=== PATIENT | male | born 1955 | race Caucasian/White ===

== ENCOUNTER 2017-04-16 14:48 | Emergency (ER) | payer OTHER ==
[2017-02-28 15:59] VITALS: Ht 170.2 cm; Wt 105.3 kg
[~2017-04-16] VITALS: Ht 170.2 cm; Wt 105.3 kg
[~2017-04-16 14:48] MED LIST: ACAM333T3 PO; ALBU8.5H IH; ALL300 PO; ALLO-119 PO; CEP500 PO; CYAN20004 PO; DIAZ-305 PO; DISU500T3 PO; FOLI-68 PO; FOLTX PO; LEVO-3 PO; LEVO100T95 PO; LID5T TP; LOR5/325 PO; MAG-65 PO; MELA5TAB6 PO; MULT-859 PO; ONDA4TAB97 SL; PANT40TA65 PO; PEDI1TAB PO; POTA-28 PO; POTA10CA40 PO; RIFA550T PO; SPIR100T30 PO; SUCR1TAB51 PO; TAMS0.4C70 PO; THIA100T2 PO; THIA100T62 PO; TOBROD OD; iron PO
[2017-04-16 16:14] LABS: PLATELET COUNT, AUTOMATED 77 K/uL (150-450)
[2017-04-16 16:49] VITALS: BP 101/59
--- NOTE | 2017-04-16 17:17 | ER Report ---
History and Physical Time Seen By MD: 15:15 Hx. of Stated Complaint: SENT FOLLOWING A CT SCAN SHOWING PANCREATITIS. HPI/ROS Recently admitted for acute pancreatitis. Had abdominal pain this past week, and sent for outpt. CT scan by Alejandra Anderson. Alejandra sent pt. to the ED for abnormal scan which shows a possible pancreatic pseudocyst. Patient states he feels very well. STopped drinking alcohol after last admission. No fever/ chills. Able to take PO. No complaints Allergies: Coded Allergies: No Known Drug Allergies (Verified , 04/16/17) Home Meds Active Scripts Potassium Chloride (POTASSIUM CHLORIDE) 10 Meq Tablet.er, 10 MEQ PO QDAY, #14 TAB 1 Refill Prov:LIBORIO JAMA MD 03/03/17 Albuterol Sulfate 90 Mcg/Act (PROAIR HFA 90 MCG/ACT) 8.5 Gm Hfa.aer.ad, 2 PUFF IH Q4-6H Y for SHORTNESS OF BREATH, #0 INHALER Prov:SHASHI WATSON MD 12/16/15 Reported Medications Cyanocobalamin (Vitamin B-12) (Vitamin B-12) 2,000 Mcg Tablet, 1 MCG PO DAILY 02/27/17 Thiamine Hcl (THIAMINE HCL) 100 Mg Tablet, 100 MG PO QDAY 01/29/17 Folic Acid (FOLIC ACID) 1 Mg Tablet, 1 MG PO QDAY, TAB 01/29/17 Tamsulosin Hcl (TAMSULOSIN HCL) 0.4 Mg Cap.er.24h, 0.4 MG PO QDAY, CAP 01/27/17 Rifaximin (XIFAXAN) 550 Mg Tablet, 550 MG PO BID 01/26/17 Levothyroxine Sodium (LEVOTHYROXINE SODIUM) 100 Mcg Tablet, 200 MCG PO QDAY, TAB 01/26/17 [iron] No Conflict Check, 325 MG PO QDAY 01/26/17 Pediatric Multivit Comb No.76 (Flintstones Complete) 1 Each Tab.chew, 1 TAB PO QDAY 01/26/17 Spironolactone (ALDACTONE) 100 Mg Tablet, 100 MG PO QDAY 01/26/17 Allopurinol (Zyloprim) 300 Mg Tab, 300 MG PO QDAY, 0 Refills 03/09/10 Past Medical/Surgical History Pancreatitis, HTN, Alcohol abuse Reviewed Nurses Notes: Yes Old Medical Records Reviewed: Yes Hx Smoking: Yes Smoking Status: Former Smoker Exposure to Second Hand Smoke?: No Hx Substance Use Disorder: No Hx Alcohol Use: Yes Constitutional Vital Sign - Last 24 Hours 04/16/17 04/16/17 04/16/17 04/16/17 15:04 15:04 16:30 16:49 Temp 98.7 Pulse 90 88 Resp 18 B/P (MAP) 104/78 (87) 104/78 101/59 (73) Pulse Ox 92 93 O2 Delivery Room Air Medical Decision Making Data Points Result Diagram: 04/16/17 1558 04/16/17 1558 Laboratory Hematology Test 04/16/17 15:58 Red Blood Count 3.94 M/uL (4.00-5.60) Mean Corpuscular Volume 102.0 fL (80.0-96.0) Mean Corpuscular Hemoglobin 36.3 pg (26.0-33.0) Mean Corpuscular Hemoglobin Concent 35.6 g/dL (32.0-36.0) Red Cell Distribution Width 13.0 % (11.5-14.5) Mean Platelet Volume 9.9 fL (7.2-11.1) Neutrophils (%) (Auto) 76.1 % (39.4-72.5) Lymphocytes (%) (Auto) 12.4 % (17.6-49.6) Monocytes (%) (Auto) 9.7 % (4.1-12.4) Eosinophils (%) (Auto) 0.9 % (0.4-6.7) Basophils (%) (Auto) 0.9 % (0.3-1.4) Nucleated RBC Relative Count (auto) 0.0 /100WBC Neutrophils # (Auto) 7.6 K/uL (2.0-7.4) Lymphocytes # (Auto) 1.2 K/uL (1.3-3.6) Monocytes # (Auto) 1.0 K/uL (0.3-1.0) Eosinophils # (Auto) 0.1 K/uL (0.0-0.5) Basophils # (Auto) 0.1 K/uL (0.0-0.1) Nucleated RBC Absolute Count (auto) 0.00 K/uL Sodium Level 135 mmol/L (137-145) Potassium Level 4.7 mmol/L (3.5-5.0) Chloride Level 98 mmol/L (98-107) Carbon Dioxide Level 25 mmol/L (22-30) Blood Urea Nitrogen 14 mg/dl (9-21) Creatinine 1.00 mg/dl (0.66-1.25) Glomerular Filtration Rate Calc > 60.0 Random Glucose 94 mg/dl (75-110) Lactate 1.2 mmol/L (0.7-2.1) Calcium Level 9.0 mg/dl (8.4-10.2) Total Bilirubin 2.0 mg/dl (0.2-1.3) Aspartate Amino Transf (AST/SGOT) 36 U/L (0-35) Alanine Aminotransferase (ALT/SGPT) 33 U/L (0-56) Alkaline Phosphatase 148 U/L (0-126) Total Protein 8.0 gm/dl (6.3-8.2) Albumin 3.5 g/dl (3.5-5.0) Lipase 82 U/L (23-300) Chemistry Test 04/16/17 15:58 White Blood Count 10.0 k/uL (4.5-11.0) Red Blood Count 3.94 M/uL (4.00-5.60) Hemoglobin 14.3 g/dL (14.0-18.0) Hematocrit 40.2 % (42.0-52.0) Mean Corpuscular Volume 102.0 fL (80.0-96.0) Mean Corpuscular Hemoglobin 36.3 pg (26.0-33.0) Mean Corpuscular Hemoglobin Concent 35.6 g/dL (32.0-36.0) Red Cell Distribution Width 13.0 % (11.5-14.5) Platelet Count 77 K/uL (150-450) Mean Platelet Volume 9.9 fL (7.2-11.1) Neutrophils (%) (Auto) 76.1 % (39.4-72.5) Lymphocytes (%) (Auto) 12.4 % (17.6-49.6) Monocytes (%) (Auto) 9.7 % (4.1-12.4) Eosinophils (%) (Auto) 0.9 % (0.4-6.7) Basophils (%) (Auto) 0.9 % (0.3-1.4) Nucleated RBC Relative Count (auto) 0.0 /100WBC Neutrophils # (Auto) 7.6 K/uL (2.0-7.4) Lymphocytes # (Auto) 1.2 K/uL (1.3-3.6) Monocytes # (Auto) 1.0 K/uL (0.3-1.0) Eosinophils # (Auto) 0.1 K/uL (0.0-0.5) Basophils # (Auto) 0.1 K/uL (0.0-0.1) Nucleated RBC Absolute Count (auto) 0.00 K/uL Glomerular Filtration Rate Calc > 60.0 Lactate 1.2 mmol/L (0.7-2.1) Calcium Level 9.0 mg/dl (8.4-10.2) Total Bilirubin 2.0 mg/dl (0.2-1.3) Aspartate Amino Transf (AST/SGOT) 36 U/L (0-35) Alanine Aminotransferase (ALT/SGPT) 33 U/L (0-56) Alkaline Phosphatase 148 U/L (0-126) Total Protein 8.0 gm/dl (6.3-8.2) Albumin 3.5 g/dl (3.5-5.0) Lipase 82 U/L (23-300) ED Course/Re-evaluation ED Course Sent to the ED by Alejandra Anderson for possible pancreatic pseudocyst on outpt. CT scan. Pt. has no complaints. Says he hasn't felt this well in weeks. No fever /chills. Taking PO. [facility]. Pancreatic pseudocyst s/p acute pancreatitis can be normal. He is currently assymptomatic, and will be discharged home with closee GI follow up. Decision to Disposition Date: Apr 16, 2017 Decision to Disposition Time: 17:16 Depart Departure Latest Vital Signs Vital Signs Date Time Temp Pulse Resp B/P (MAP) Pulse Ox O2 Delivery O2 Flow Rate FiO2 04/16/17 16:49 101/59 (73) 04/16/17 16:30 88 93 04/16/17 15:04 98.7 18 Room Air Impression: Primary Impression: Pancreatic abnormality Condition: Improved Disposition: HOME OR SELF-CARE Referrals: ALEJANDRA ANDERSON (PCP) Patient Instructions: Pancreatic Pseudocyst (GEN) GAYATHRI BATES MD Apr 16, 2017 17:17
== END 2017-04-16 17:25 | disposition home or self-care (01) ==
LOC: ER 15:20
DX: K85.90 Acute pancreatitis without necrosis or infection, unspecified (principal)
CPT/HCPCS: 82040; 82247; 82310; 82374; 82435; 82565; 82947; 83605; 83690; 84075; 84132; 84155; 84295; 84450; 84460; 84520; 85025; 99284

== ENCOUNTER → 2017-08-22 | Outpatient (CLI) | payer OTHER ==
[2017-02-28 15:59] VITALS: BMI 36.3
[2017-08-22 11:52] LABS: PLATELET COUNT, AUTOMATED 39 K/uL (150-450)
== END ==
LOC: LAB 11:25
PROVIDERS: ATTEND Nurse Practitioner Family
DX: C18.9 Malignant neoplasm of colon, unspecified (principal); J44.9 Chronic obstructive pulmonary disease, unspecified; E11.9 Type 2 diabetes mellitus without complications; M10.09 Idiopathic gout, multiple sites; R73.01 Impaired fasting glucose; D50.9 Iron deficiency anemia, unspecified; D50.8 Other iron deficiency anemias; E66.01 Morbid (severe) obesity due to excess calories; J43.9 Emphysema, unspecified; E53.8 Deficiency of other specified B group vitamins; R74.8 Abnormal levels of other serum enzymes; G47.31 Primary central sleep apnea; E78.00 Pure hypercholesterolemia, unspecified; E03.9 Hypothyroidism, unspecified; I10 Essential (primary) hypertension; E55.9 Vitamin D deficiency, unspecified
CPT/HCPCS: 36415; 82040; 82150; 82247; 82306; 82310; 82374; 82435; 82565; 82607; 82746; 82947; 83036; 83690; 84075; 84132; 84155; 84295; 84443; 84450; 84460; 84520; 85025

== ENCOUNTER → 2017-09-11 | Outpatient (CLI) | payer OTHER ==
[2017-02-28 15:59] VITALS: BMI 36.3
[2017-09-11 10:20] LABS: INR 1.27
[2017-09-11 10:56] LABS: PLATELET COUNT, AUTOMATED 40 K/uL (150-450)
== END ==
LOC: LAB 09:13
PROVIDERS: ATTEND Internal Medicine Gastroenterology
DX: K74.60 Unspecified cirrhosis of liver (principal)
CPT/HCPCS: 36415; 82040; 82247; 82310; 82374; 82435; 82565; 82947; 83540; 83550; 84075; 84132; 84155; 84295; 84450; 84460; 84520; 85025; 85610

== ENCOUNTER → 2017-12-04 | Outpatient (CLI) | payer OTHER ==
[2017-02-28 15:59] VITALS: BMI 36.3
[~2017-12-04] MED LIST changes: +HYDR30CR10 TP
== END ==
LOC: LAB 09:40
PROVIDERS: ATTEND Nurse Practitioner Family
DX: K72.00 Acute and subacute hepatic failure without coma (principal); K70.0 Alcoholic fatty liver; C18.9 Malignant neoplasm of colon, unspecified; J44.9 Chronic obstructive pulmonary disease, unspecified; E11.9 Type 2 diabetes mellitus without complications; D50.9 Iron deficiency anemia, unspecified; J43.9 Emphysema, unspecified; E78.00 Pure hypercholesterolemia, unspecified; E03.9 Hypothyroidism, unspecified
CPT/HCPCS: 36415; 82040; 82150; 82247; 82310; 82374; 82435; 82565; 82947; 83036; 83690; 84075; 84132; 84155; 84295; 84443; 84450; 84460; 84520; 85027

== ENCOUNTER 2018-02-25 06:18 | Emergency (ER) | payer OTHER ==
[2017-02-28 15:59] VITALS: Wt 95.3 kg
[~2018-02-25 06:18] MED LIST changes: -TRAZ100T31 PO; -TRAZ50TA34 PO
[2018-02-25] MEDS ORDERED: PANTOPRAZOLE SOD 40 MG IV VIAL IVP ONE (06:25)
[2018-02-25] MEDS ORDERED: NS(*) 0.9% 1000 ML BAG 1,000 ML IV ONE ×3 (06:25→10:30)
[2018-02-25] MEDS ORDERED: ONDANSETRON 4 MG/2 ML VIAL IVP ONE ×2 (06:25→11:05)
--- NOTE | 2018-02-25 06:25 | ER Report ---
History and Physical Time Seen By MD: 06:22 (MARYLOU ANDREA DO) HPI/ROS CHIEF COMPLAINT: Vomiting, rectal bleeding HISTORY OF PRESENT ILLNESS: 62-year-old male alcoholic with cirrhosis and esophageal varices presents to the ER with rectal bleeding and vomiting. Patient admits drinking alcohol last night. Patient admits dark stools for a couple of days and then a lot of blood this morning. He describes bright red blood clots per rectum. REVIEW OF SYSTEMS: Respiratory: No cough, no dyspnea. Cardiovascular: No chest pain, no palpitations. Gastrointestinal: As above Musculoskeletal: No back pain. (MARYLOU ANDREA DO) Allergies: Coded Allergies: No Known Drug Allergies (Verified , 04/16/17) Home Meds Active Scripts Potassium Chloride (POTASSIUM CHLORIDE) 10 Meq Tablet.er, 10 MEQ PO QDAY, #14 TAB 1 Refill Prov:LIBORIO JAMA MD 03/03/17 Albuterol Sulfate 90 Mcg/Act (PROAIR HFA 90 MCG/ACT) 8.5 Gm Hfa.aer.ad, 2 PUFF IH Q4-6H PRN for SHORTNESS OF BREATH, #0 INHALER Prov:SHASHI WATSON MD 12/16/15 Reported Medications Trazodone Hcl (TRAZODONE HCL) 100 Mg Tablet, 100 MG PO QHS, TAB 02/25/18 Cyanocobalamin (Vitamin B-12) (Vitamin B-12) 2,000 Mcg Tablet, 1 MCG PO DAILY 02/27/17 Thiamine Hcl (THIAMINE HCL) 100 Mg Tablet, 100 MG PO QDAY 01/29/17 Folic Acid (FOLIC ACID) 1 Mg Tablet, 1 MG PO QDAY, TAB 01/29/17 Tamsulosin Hcl (TAMSULOSIN HCL) 0.4 Mg Cap.er.24h, 0.4 MG PO QDAY, CAP 01/27/17 Rifaximin (XIFAXAN) 550 Mg Tablet, 550 MG PO BID 01/26/17 Levothyroxine Sodium (LEVOTHYROXINE SODIUM) 100 Mcg Tablet, 200 MCG PO QDAY, TAB 01/26/17 [iron] No Conflict Check, 325 MG PO QDAY 01/26/17 Pediatric Multivit Comb No.76 (Flintstones Complete) 1 Each Tab.chew, 1 TAB PO QDAY 01/26/17 Spironolactone (ALDACTONE) 100 Mg Tablet, 100 MG PO QDAY 01/26/17 Allopurinol (Zyloprim) 300 Mg Tab, 300 MG PO QDAY, 0 Refills 03/09/10 Discontinued Reported Medications Trazodone Hcl (TRAZODONE HCL) 50 Mg Tablet, 50 MG PO QHS 02/25/18 Discontinued Scripts Hydrocortisone 2.5 % 30 GM CREAM (Hydrocortisone 2.5 % 30 GM CREAM) 2.5 % Cream.appl, 1 JEWELL TP BID for 30 Days, #1 TUBE 0 Refills Prov:KATHLEEN TORIBIO Lisa NPC 10/24/17 Reviewed Nurses Notes: Yes Old Medical Records Reviewed: Yes (MARYLOU ANDREA DO) Hx Smoking: Yes Smoking Status: Former Smoker Exposure to Second Hand Smoke?: No Hx Substance Use Disorder: No Hx Alcohol Use: Yes (MARYLOU ANDREA DO) Constitutional Vital Sign - Last 24 Hours 02/25/18 02/25/18 02/25/18 02/25/18 06:22 06:30 06:44 06:45 Temp 98.0 Pulse 129 129 125 Resp 22 B/P (MAP) 124/78 109/88 (95) 117/77 (90) Pulse Ox 93 93 97 O2 Delivery Room Air 02/25/18 02/25/18 02/25/18 07:00 07:15 07:30 Pulse 118 124 128 B/P (MAP) 121/74 (90) 151/101 (118) Pulse Ox 98 98 98 (GAYATHRI BATES MD) Physical Exam Vital signs noted, tachycardic to 129, patient's blood pressure is borderline hypotensive. General Appearance: The patient is alert, has no immediate need for airway protection and no current signs of toxicity. Patient appears slightly jaundice and pale HEENT: Pupils equal and round no injection. Sclerae slightly icteric. Oropharynx with mild erythema, no exudate Respiratory: Chest is non tender, lungs are clear to auscultation. Cardiac: regular rate and rhythm Gastrointestinal: Abdomen is soft, distended with fluid wave, no masses, bowel sounds normal. Musculoskeletal: Neck: Neck is supple and non tender. Extremities have full range of motion and are non tender. Skin: No rashes or lesions. DIFFERENTIAL DIAGNOSIS: After history and physical exam differential diagnosis was considered for upper GI bleeding including but not limited to ulcer disease, gastritis, Vanessa-Ricardo tear, and esophageal varices. Additionally, lower GI bleeding including but not limited to diverticulosis, tumor, AVM, hemorrhoid and anal fissure. (MARYLOU ANDREA DO) Medical Decision Making Data Points Result Diagram: 02/25/18 0809 02/25/18 0628 Laboratory Hematology Test 02/25/18 06:28 02/25/18 07:40 02/25/18 08:09 Prothrombin Time 16.5 seconds (12.0-14.4) Prothromb Time International Ratio 1.32 Activated Partial Thromboplast Time 29 seconds (23-35) Sodium Level 138 mmol/L (137-145) Potassium Level 4.2 mmol/L (3.5-5.0) Chloride Level 98 mmol/L (98-107) Carbon Dioxide Level 21 mmol/L (22-30) Blood Urea Nitrogen 20 mg/dl (9-21) Creatinine 0.90 mg/dl (0.66-1.25) Glomerular Filtration Rate Calc > 60.0 Random Glucose 301 mg/dl (75-110) Calcium Level 8.8 mg/dl (8.4-10.2) Total Bilirubin 1.2 mg/dl (0.2-1.3) Aspartate Amino Transf (AST/SGOT) 59 U/L (0-35) Alanine Aminotransferase (ALT/SGPT) 61 U/L (0-56) Alkaline Phosphatase 107 U/L (0-126) Total Protein 6.2 g/dl (6.3-8.2) Albumin 3.2 g/dl (3.5-5.0) Amylase Level < 30 U/L (0-110) Lipase 32 U/L (23-300) Serum Alcohol 106 mg/dl Urine Color Yellow Urine Clarity Clear Urine pH 5.0 pH (4.8-9.5) Urine Specific [place] 1.018 Urine Protein Negative mg/dL (NEGATIVE) Urine Glucose (UA) 500 mg/dL (NEGATIVE) Urine Ketones 20 mg/dL (NEGATIVE) Urine Blood Negative (NEGATIVE) Urine Nitrite Negative (NEGATIVE) Urine Bilirubin Negative (NEGATIVE) Urine Urobilinogen Negative mg/dL (0.2-1.9) Urine Leukocyte Esterase Negative (NEGATIVE) Urine RBC None /HPF (0-2/HPF) Urine WBC 1 /HPF (0-5/HPF) Urine Squamous Epithelial Cells Few /LPF (</=FEW) Urine Bacteria Few /HPF (NONE-FEW) Urine Hyaline Casts Few /LPF (NONE-FEW) Urine Mucus Few /HPF (NONE-FEW) Stool Occult Blood (IFOB) Negative (NEGATIVE) Red Blood Count 3.10 M/uL (4.00-5.60) Mean Corpuscular Volume 102.8 fL (80.0-96.0) Mean Corpuscular Hemoglobin 35.4 pg (26.0-33.0) Mean Corpuscular Hemoglobin Concent 34.5 g/dL (32.0-36.0) Red Cell Distribution Width 13.4 % (11.5-14.5) Mean Platelet Volume 8.9 fL (7.2-11.1) Neutrophils (%) (Auto) 88.0 % (39.4-72.5) Lymphocytes (%) (Auto) 7.3 % (17.6-49.6) Monocytes (%) (Auto) 4.3 % (4.1-12.4) Eosinophils (%) (Auto) 0.1 % (0.4-6.7) Basophils (%) (Auto) 0.3 % (0.3-1.4) Nucleated RBC Relative Count (auto) 0.1 /100WBC Neutrophils # (Auto) 14.4 K/uL (2.0-7.4) Lymphocytes # (Auto) 1.2 K/uL (1.3-3.6) Monocytes # (Auto) 0.7 K/uL (0.3-1.0) Eosinophils # (Auto) 0.0 K/uL (0.0-0.5) Basophils # (Auto) 0.0 K/uL (0.0-0.1) Nucleated RBC Absolute Count (auto) 0.01 K/uL Lactate 8.5 mmol/L (0.7-2.1) Chemistry Test 02/25/18 06:28 02/25/18 07:40 02/25/18 08:09 Prothrombin Time 16.5 seconds (12.0-14.4) Prothromb Time International Ratio 1.32 Activated Partial Thromboplast Time 29 seconds (23-35) Glomerular Filtration Rate Calc > 60.0 Calcium Level 8.8 mg/dl (8.4-10.2) Total Bilirubin 1.2 mg/dl (0.2-1.3) Aspartate Amino Transf (AST/SGOT) 59 U/L (0-35) Alanine Aminotransferase (ALT/SGPT) 61 U/L (0-56) Alkaline Phosphatase 107 U/L (0-126) Total Protein 6.2 g/dl (6.3-8.2) Albumin 3.2 g/dl (3.5-5.0) Amylase Level < 30 U/L (0-110) Lipase 32 U/L (23-300) Serum Alcohol 106 mg/dl Urine Color Yellow Urine Clarity Clear Urine pH 5.0 pH (4.8-9.5) Urine Specific Mahomet 1.018 Urine Protein Negative mg/dL (NEGATIVE) Urine Glucose (UA) 500 mg/dL (NEGATIVE) Urine Ketones 20 mg/dL (NEGATIVE) Urine Blood Negative (NEGATIVE) Urine Nitrite Negative (NEGATIVE) Urine Bilirubin Negative (NEGATIVE) Urine Urobilinogen Negative mg/dL (0.2-1.9) Urine Leukocyte Esterase Negative (NEGATIVE) Urine RBC None /HPF (0-2/HPF) Urine WBC 1 /HPF (0-5/HPF) Urine Squamous Epithelial Cells Few /LPF (</=FEW) Urine Bacteria Few /HPF (NONE-FEW) Urine Hyaline Casts Few /LPF (NONE-FEW) Urine Mucus Few /HPF (NONE-FEW) Stool Occult Blood (IFOB) Negative (NEGATIVE) White Blood Count 16.3 k/uL (4.5-11.0) Red Blood Count 3.10 M/uL (4.00-5.60) Hemoglobin 11.0 g/dL (14.0-18.0) Hematocrit 31.9 % (42.0-52.0) Mean Corpuscular Volume 102.8 fL (80.0-96.0) Mean Corpuscular Hemoglobin 35.4 pg (26.0-33.0) Mean Corpuscular Hemoglobin Concent 34.5 g/dL (32.0-36.0) Red Cell Distribution Width 13.4 % (11.5-14.5) Platelet Count 91 K/uL (150-450) Mean Platelet Volume 8.9 fL (7.2-11.1) Neutrophils (%) (Auto) 88.0 % (39.4-72.5) Lymphocytes (%) (Auto) 7.3 % (17.6-49.6) Monocytes (%) (Auto) 4.3 % (4.1-12.4) Eosinophils (%) (Auto) 0.1 % (0.4-6.7) Basophils (%) (Auto) 0.3 % (0.3-1.4) Nucleated RBC Relative Count (auto) 0.1 /100WBC Neutrophils # (Auto) 14.4 K/uL (2.0-7.4) Lymphocytes # (Auto) 1.2 K/uL (1.3-3.6) Monocytes # (Auto) 0.7 K/uL (0.3-1.0) Eosinophils # (Auto) 0.0 K/uL (0.0-0.5) Basophils # (Auto) 0.0 K/uL (0.0-0.1) Nucleated RBC Absolute Count (auto) 0.01 K/uL Lactate 8.5 mmol/L (0.7-2.1) Coagulation Test 02/25/18 06:28 Prothrombin Time 16.5 seconds Prothromb Time International Ratio 1.32 Activated Partial Thromboplast Time 29 seconds Toxicology Test 02/25/18 06:28 Serum Alcohol 106 mg/dl Urinalysis Test 02/25/18 07:40 Urine Color Yellow Urine Clarity Clear Urine pH 5.0 pH (4.8-9.5) Urine Specific Mahomet 1.018 Urine Protein Negative mg/dL (NEGATIVE) Urine Glucose (UA) 500 mg/dL (NEGATIVE) Urine Ketones 20 mg/dL (NEGATIVE) Urine Blood Negative (NEGATIVE) Urine Nitrite Negative (NEGATIVE) Urine Bilirubin Negative (NEGATIVE) Urine Urobilinogen Negative mg/dL (0.2-1.9) Urine Leukocyte Esterase Negative (NEGATIVE) Urine RBC None /HPF (0-2/HPF) Urine WBC 1 /HPF (0-5/HPF) Urine Squamous Epithelial Cells Few /LPF (</=FEW) Urine Bacteria Few /HPF (NONE-FEW) Urine Hyaline Casts Few /LPF (NONE-FEW) Urine Mucus Few /HPF (NONE-FEW) (GAYATHRI BATES MD) ED Course/Re-evaluation Clinical Indication for ER IV: Hydration, IV Access ED Course Patient was admitted to an examination room. H&P was done. The differential diagnoses was considered. Patient with a history of esophageal varices and rectal bleeding. He is tachycardic at 129. His pressure is 109/62. Patient will have 2 large bore peripheral IVs established. He is given Protonix 80 mg IV. Crossmatched for 4 units of blood. Diagnostic studies are ordered including coags. 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 Alcohol and lactate were ordered as well. Fluid resuscitation is initiated. Care is turned over to Dr. Bates at shift change. Turned Over The care of the patient was turned over to Dr Bates. Dr. Andrea I authorize my typed signature that I authenticated this report. (MARYLOU ANDREA DO) ED Course I took this patient over as a transfer from Dr. Andrea. He was hemodynamically stable upon transfer, but still with rectal bleeding and intermittent abdominal cramping. H&H notably has dropped from December 2017. Lactate is elevated. Patient is tachycardic. He has a history of banded esophageal varices last banded in 2015. Also with a history of gastric bypass. I gave him octreotide with a bolus and placed him on a drip. He had received a bolus of Protonix, and I placed him on a drip as well. He is continuing to fluid resuscitation as well. A CT scan was obtained given the history of his abdominal pain, what appears to be lower GI bleeding, and a history of gastric bypass. CT scan only notable for possibility of esophageal variceal bleeding. Given his history of varices, he will need to be transferred to a higher level of care in case of the need for banding. He is currently clinically stable and resuscitation is continuing. Decision to Disposition Date: Feb 25, 2018 Decision to Disposition Time: 09:54 (GAYATHRI BATES MD) Depart Departure Latest Vital Signs Vital Signs Date Time Temp Pulse Resp B/P (MAP) Pulse Ox O2 Delivery O2 Flow Rate FiO2 02/25/18 07:30 128 151/101 (118) 98 02/25/18 06:22 98.0 22 Room Air (GAYATHRI BATES MD) Impression: Primary Impression: Gastrointestinal bleeding Condition: Improved Disposition: XFER TO ACUTE CARE HOSPITAL Referrals: JEFERSON BILL (PCP) Problem Qualifiers Primary Impression: Gastrointestinal bleeding GI bleed type/associated pathology: unspecified gastrointestinal hemorrhage type Qualified Codes: K92.2 - Gastrointestinal hemorrhage, unspecified MARYLOU ANDREA DO Feb 25, 2018 06:25 GAYATHRI BATES MD Feb 25, 2018 09:55
[2018-02-25] MEDS ORDERED: TRAZ100T31 PO (06:33)
[2018-02-25] MEDS ORDERED: TRAZ50TA34 PO (06:33)
[2018-02-25 06:41] LABS: PLATELET COUNT, AUTOMATED 124 K/uL (150-450)
[2018-02-25 06:52] LABS: INR 1.32
--- NOTE | 2018-02-25 07:10 | EKG ---
FAC[place] [facility] [place]IENT NAME: SUSI CHAN : [id number] MR: [id number] V: [id number] EXAM DATE: ORDERING PHYSICIAN: MARYLOU OROPEZA TECHNOLOGIST: JULIAN Jimenez Reason : GI PROB Blood Pressure : / mmHG Vent. Rate : 116 BPM Atrial Rate : 116 BPM P-R Int : 144 ms QRS Dur : 082 ms QT Int : 352 ms P-R-T Axes : 051 039 046 degrees QTc Int : 489 ms Sinus tachycardia Otherwise normal ECG When compared with ECG of 06-DEC-2015 17:37, Nonspecific T wave abnormality no longer evident in Anterior leads Confirmed by LINO MESSINA ([id number]) on 02/25/2018 10:46:43 AM Referred By: PAULO Confirmed By:LINO MESSINA
[2018-02-25] MEDS ORDERED: PANTOPRAZOLE SOD(*)40 MG VIAL 80 MG in NS(*) 0.9% 100 ML BAG 100 ML IV SCH (07:30)
[2018-02-25] MEDS ORDERED: OCTREOTIDE ACE 200 MCG/ML 5 ML 200 MCG in NS(*) 0.9% 100 ML BAG 99 ML IVPB ONE ×2 (07:30→11:00)
[2018-02-25] MEDS ORDERED: OCTREOTIDE ACE 200 MCG/ML 5 ML VIAL IVP ONE (07:30)
[2018-02-25] MEDS ORDERED: IOPAMIDOL 76% 75 ML INFUS BTL 75 ML ONE (08:02)
[2018-02-25 08:15] LABS: PLATELET COUNT, AUTOMATED 91 K/uL (150-450)
[2018-02-25] MEDS ORDERED: NS(*) 0.9% 100 ML BAG 100 ML ONE (08:49)
[2018-02-25] MEDS ORDERED: LORazepam 2 MG/ML VIAL IVP ONE ×2 (08:55→10:20)
--- NOTE | 2018-02-25 09:12 | RADIOLOGY IMAGING REPORT ---
FACILITY: [facility] - [place] PATIENT NAME: Yong Gomez : 1955 MR: [id number] V: [id number] EXAM DATE: [id number] ORDERING PHYSICIAN: GAYATHRI BATES TECHNOLOGIST: Location: [facility] - [place] Patient: Yong Gomez : 1955 Visit/Account:[id number] Date of Sevice: 02/25/2018 CT abdomen with IV contrast CT pelvis with IV contrast History: GI bleeding and pain post gastric bypass. COMPARISON STUDIES: CT abdomen and pelvis 04/16/2017. TECHNIQUE: Axial CT images were obtained through the abdomen and pelvis during injection of nonioni c iodinated intravenous contrast. Reformatted coronal and sagittal images were also obtained. Contrast: 75 ml of Isovue-370 IV contrast. One of the following dose optimization techniques was utilized in the performance of this exam: Autom ated exposure control; adjustment of the mA and/or kV according to the patient's size; or use of an i terative reconstruction technique. Specific details can be referenced in the facility's radiology C T exam operational policy. FINDINGS: Chest bases: Negative Liver: Right liver lobe is long, measuring 20 cm length. Left lobe measures 7 cm in length. The live r is diffusely hypodense with and has irregular margins. No focal liver lesion is identified. Portal and hepatic veins opacify completely. The umbilical vein is recannulated. Gallbladder and bile ducts: Several small dense stones are seen in the dependent gallbladder. Normal sized bile ducts. Spleen: Spleen measures 14 x 6 x 10 cm. Pancreas: Diffuse atrophy. A pancreas head fluid/gas collection present on the previous study has re solved. There is mild peripancreatic fluid and fat haziness adjacent to the pancreas head. Adrenal glands: negative Kidneys: Left kidney posterior lower pole cyst with thick wall and minimal mural calcification, 20 x 11 x 20 mm (coronal image 68), and a lateral cortical cyst, image 187 series 3, are unchanged. Pelvic structures: Large prostate gland produces an inferior impression upon the bladder, 6 x 5 x 5 mm. There are no bladder stones. Bowel and mesenteries: Numerous colonic diverticula are without acute inflammatory change. Distal pe riduodenal fat haziness is adjacent to the pancreas head. Postsurgical changes of Jovon-en-Y gastropla sty. Ascites: None Vessels: Mild mural calcification of the abdominal aorta. Upper abdominal and distal esophageal vari esau are distended. Musculoskeletal: L2 vertebral body hemangioma. Body wall: 2 focal round subcutaneous fat lesions, one with rim calcification are unchanged, images 237 and 248. Lymph node assessment: negative IMPRESSION: 1. Findings of portal hypertension include distal esophageal and upper abdominal varices. The distal esophageal varices could be the source of GI bleed. 2. Cirrhotic appearing liver without identification of a mass. 3. Mild fat haziness and fluid adjacent to the distal duodenum and pancreas head could be due to duod enitis and/or pancreatitis. A pancreas head pseudocyst or abscess has resolved since the prior study. 4. Cholelithiasis. 5. Large prostate gland. Report Dictated By: Kitty Swenson MD at 02/25/2018 8:49 AM Report E-Signed By: Kitty Swenson MD at 02/25/2018 9:07 AM WSN:[id number]
[2018-02-25] MEDS ORDERED: MORPHINE 4 MG/ML SDV IVP ONE (10:20)
[2018-02-25 10:40] VITALS: BP 116/69
== END 2018-02-25 11:14 | disposition short-term general hospital (02) ==
LOC: ER 06:51
DX: K92.2 Gastrointestinal hemorrhage, unspecified (principal); R00.0 Tachycardia, unspecified
CPT/HCPCS: 36415; 74177; 80320; 81001; 82150; 82274; 83605; 83690; 85025; 85610; 85730; 86850; 86900; 86901; 93005; 96361; 96365; 96366; 96367; 96375; 96376; 99285; C9113; J2060; J2270; J2354; J2405; J7030; J7050; Q9967; 82040; 82247; 82310; 82374; 82435; 82565; 82947; 84075; 84132; 84155; 84295; 84450; 84460; 84520; 86920

== ENCOUNTER → 2018-02-25 | Outpatient (REF) ==
[2017-02-28 15:59] VITALS: BMI 36.3
[~2018-02-25] MED LIST changes: +TRAZ100T31 PO; +TRAZ50TA34 PO
== END ==
LOC: AMB 10:40
PROVIDERS: ATTEND Nurse Practitioner
DX: K92.2 Gastrointestinal hemorrhage, unspecified (principal)

== ENCOUNTER → 2018-03-06 | Outpatient (CLI) | payer OTHER ==
[2017-02-28 15:59] VITALS: BMI 36.3
[~2018-03-06] MED LIST changes: +TRAZ100T31 PO; +TRAZ50TA34 PO
[2018-03-06 10:50] LABS: LDL CHOLESTEROL 24 mg/dl
== END ==
LOC: LAB 10:17
PROVIDERS: ATTEND Nurse Practitioner Family
DX: R77.0 Abnormality of albumin (principal); K72.00 Acute and subacute hepatic failure without coma; K70.0 Alcoholic fatty liver; C15.9 Malignant neoplasm of esophagus, unspecified; J44.9 Chronic obstructive pulmonary disease, unspecified; E11.9 Type 2 diabetes mellitus without complications; M10.09 Idiopathic gout, multiple sites; D50.9 Iron deficiency anemia, unspecified; G47.31 Primary central sleep apnea; E87.8 Other disorders of electrolyte and fluid balance, not elsewhere classified; R53.81 Other malaise; E78.00 Pure hypercholesterolemia, unspecified; E53.8 Deficiency of other specified B group vitamins
CPT/HCPCS: 36415; 82040; 82247; 82310; 82374; 82435; 82465; 82565; 82607; 82728; 82947; 83036; 83718; 84075; 84132; 84155; 84295; 84443; 84450; 84460; 84478; 84520; 84550; 85027

== ENCOUNTER 2018-06-02 00:42 | Inpatient (IN) | payer OTHER ==
[2017-02-28 15:59] VITALS: Ht 170.2 cm; Wt 102.3 kg
[2018-06-02] VITALS (8 sets, daily range): BP systolic 152–187; BP diastolic 96–110
[~2018-06-02] VITALS: Ht 170.2 cm; Wt 102.3 kg
--- NOTE | 2018-06-02 00:56 | ER Report ---
History and Physical Time Seen By MD: 00:56 Hx. of Stated Complaint: DRANK TOO MUCH TONIGHT. STOMACHE HURTS. HASN'T EATEN IN 3 DAYS. LAST DRINK AT 6PM TONIGHT HPI/ROS CHIEF COMPLAINT: Abdominal pain, intoxication HISTORY OF PRESENT ILLNESS: This is a 62-year-old male. He's having stomach pain. He is a heavy drinker on a daily basis. Has been drinking even more heavily the last few days. Now stomach pain. History of cirrhosis, pancreatitis, esophageal varices and GI bleeding in the past. He is also been in the hospital for detox in the past. He would like to detox and get to a residential treatment center. His pain is severe in the epigastric area. He notes no GI bleeding such as vomiting blood, blood in the stool or melena. Denies any fevers or chills. He is not short of breath or having any chest pain right now. Allergies: Coded Allergies: No Known Drug Allergies (Verified , 06/02/18) Home Meds Active Scripts Potassium Chloride (POTASSIUM CHLORIDE) 10 Meq Tablet.er, 10 MEQ PO QDAY, #14 TAB 1 Refill Prov:LIBORIO JAMA MD 03/03/17 Albuterol Sulfate 90 Mcg/Act (PROAIR HFA 90 MCG/ACT) 8.5 Gm Hfa.aer.ad, 2 PUFF IH Q4-6H PRN for SHORTNESS OF BREATH, #0 INHALER Prov:SHASHI WATSON MD 12/16/15 Reported Medications Trazodone Hcl (TRAZODONE HCL) 100 Mg Tablet, 100 MG PO QHS, TAB 02/25/18 Cyanocobalamin (Vitamin B-12) (Vitamin B-12) 2,000 Mcg Tablet, 1 MCG PO DAILY 02/27/17 Thiamine Hcl (THIAMINE HCL) 100 Mg Tablet, 100 MG PO QDAY 01/29/17 Folic Acid (FOLIC ACID) 1 Mg Tablet, 1 MG PO QDAY, TAB 01/29/17 Tamsulosin Hcl (TAMSULOSIN HCL) 0.4 Mg Cap.er.24h, 0.4 MG PO QDAY, CAP 01/27/17 Rifaximin (XIFAXAN) 550 Mg Tablet, 550 MG PO BID 01/26/17 Levothyroxine Sodium (LEVOTHYROXINE SODIUM) 100 Mcg Tablet, 200 MCG PO QDAY, TAB 01/26/17 [iron] No Conflict Check, 325 MG PO QDAY 01/26/17 Pediatric Multivit Comb No.76 (Flintstones Complete) 1 Each Tab.chew, 1 TAB PO QDAY 01/26/17 Spironolactone (ALDACTONE) 100 Mg Tablet, 100 MG PO QDAY 01/26/17 Allopurinol (Zyloprim) 300 Mg Tab, 300 MG PO QDAY, 0 Refills 03/09/10 Reviewed Nurses Notes: Yes Hx Smoking: Yes Smoking Status: Former Smoker Exposure to Second Hand Smoke?: No Hx Substance Use Disorder: No Hx Alcohol Use: Yes Constitutional Vital Sign - Last 24 Hours 06/02/18 06/02/18 06/02/18 06/02/18 00:42 00:47 00:49 00:57 Temp 98.3 Pulse ??? 109 117 Resp 18 B/P (MAP) 168/105 168/105 (126) Pulse Ox 89 91 O2 Delivery Room Air 06/02/18 06/02/18 06/02/18 06/02/18 01:00 01:12 01:36 01:42 Pulse 116 117 B/P (MAP) 137/80 (99) 158/98 (118) Pulse Ox 88 95 06/02/18 06/02/18 06/02/18 06/02/18 01:57 02:00 02:02 02:17 Pulse 109 119 110 Pulse Ox 93 94 93 O2 Flow Rate 2.0 06/02/18 06/02/18 06/02/18 06/02/18 02:30 02:32 02:47 03:00 Pulse 111 118 B/P (MAP) 158/86 (110) 192/113 (139) Pulse Ox 93 93 06/02/18 06/02/18 06/02/18 06/02/18 03:02 03:08 03:13 03:28 Pulse 112 119 115 B/P (MAP) 189/120 (143) Pulse Ox 90 95 91 Physical Exam General Appearance: The patient is alert. Intoxicated. Eyes: Pupils are equal, round. Reactive to light. He has some injection, no icterus. Extraocular movements are intact. ENT: Mucous membranes are dry. Normal oral mucosa. Posterior oropharynx is normal. Normal tympanic membranes and canals. Neck: Supple and non tender. No lymphadenopathy. Respiratory: Lungs are clear to auscultation. Cardiovascular: Regular rate and rhythm. No murmurs, gallops or rubs. Normal capillary refill. Gastrointestinal: Abdomen is soft and tender in the epigastric area. Has some distention with fluid wave. No masses or organomegaly. Normal active bowel sounds. No costovertebral angle tenderness with percussion. Neurological: Alert and oriented x3. No focal neurologic deficits Musculoskeletal: Extremities are nontender. No tenderness in palpation of the cervical, thoracic and lumbar spine. DIFFERENTIAL DIAGNOSIS: After history and physical exam, differential diagnosis was considered for abdominal pain and intoxication, likely due to gastritis, pancreatitis but would need to rule out other things such as spontaneous bacterial peritonitis or other infectious etiologies Medical Decision Making Data Points Result Diagram: 06/02/18 0117 06/02/18116 Laboratory Hematology Test 06/02/18 01:17 06/02/18 01:32 Red Blood Count 5.27 M/uL (4.00-5.60) Mean Corpuscular Volume 92.3 fL (80.0-96.0) Mean Corpuscular Hemoglobin 31.2 pg (26.0-33.0) Mean Corpuscular Hemoglobin Concent 33.8 g/dL (32.0-36.0) Red Cell Distribution Width 18.4 % (11.5-14.5) Mean Platelet Volume 9.0 fL (7.2-11.1) Neutrophils (%) (Auto) 83.2 % (39.4-72.5) Lymphocytes (%) (Auto) 11.0 % (17.6-49.6) Monocytes (%) (Auto) 5.2 % (4.1-12.4) Eosinophils (%) (Auto) 0.2 % (0.4-6.7) Basophils (%) (Auto) 0.4 % (0.3-1.4) Nucleated RBC Relative Count (auto) 0.1 /100WBC Neutrophils # (Auto) 7.7 K/uL (2.0-7.4) Lymphocytes # (Auto) 1.0 K/uL (1.3-3.6) Monocytes # (Auto) 0.5 K/uL (0.3-1.0) Eosinophils # (Auto) 0.0 K/uL (0.0-0.5) Basophils # (Auto) 0.0 K/uL (0.0-0.1) Nucleated RBC Absolute Count (auto) 0.01 K/uL Peripheral Blood Smear Yes Y/N Sodium Level 140 mmol/L (137-145) Potassium Level 3.2 mmol/L (3.5-5.0) Chloride Level 98 mmol/L (98-107) Carbon Dioxide Level 25 mmol/L (22-30) Blood Urea Nitrogen 7 mg/dl (9-21) Creatinine 0.80 mg/dl (0.66-1.25) Glomerular Filtration Rate Calc > 60.0 Random Glucose 277 mg/dl (75-110) Calcium Level 9.3 mg/dl (8.4-10.2) Total Bilirubin 5.6 mg/dl (0.2-1.3) Aspartate Amino Transf (AST/SGOT) 108 U/L (0-35) Alanine Aminotransferase (ALT/SGPT) 84 U/L (0-56) Alkaline Phosphatase 162 U/L (0-126) Total Protein 8.3 g/dl (6.3-8.2) Albumin 4.2 g/dl (3.5-5.0) Amylase Level 541 U/L (0-110) Lipase 6573 U/L (23-300) Serum Alcohol 258 mg/dl Urine Color Bridgette Urine Clarity Clear Urine pH 6.0 pH (4.8-9.5) Urine Specific [place] 1.016 Urine Protein 100 mg/dL (NEGATIVE) Urine Glucose (UA) 150 mg/dL (NEGATIVE) Urine Ketones 20 mg/dL (NEGATIVE) Urine Blood Small (NEGATIVE) Urine Nitrite Negative (NEGATIVE) Urine Bilirubin Negative (NEGATIVE) Urine Urobilinogen Negative mg/dL (0.2-1.9) Urine Leukocyte Esterase Negative (NEGATIVE) Urine RBC 1 /HPF (0-2/HPF) Urine WBC None /HPF (0-5/HPF) Urine Squamous Epithelial Cells None /LPF (</=FEW) Urine Bacteria Negative /HPF (NONE-FEW) Urine Hyaline Casts Few /LPF (NONE-FEW) Urine Mucus None /HPF (NONE-FEW) Urine Opiates Screen Negative Urine Barbiturates Screen Negative Ur Tricyclic Antidepressants Screen Negative Urine Phencyclidine Screen Negative Urine Amphetamines Screen Negative Urine Benzodiazepines Screen Negative Urine Cocaine Screen Negative Urine Cannabinoids Screen Negative Chemistry Test 06/02/18 01:17 06/02/18 01:32 White Blood Count 9.3 k/uL (4.5-11.0) Red Blood Count 5.27 M/uL (4.00-5.60) Hemoglobin 16.4 g/dL (14.0-18.0) Hematocrit 48.6 % (42.0-52.0) Mean Corpuscular Volume 92.3 fL (80.0-96.0) Mean Corpuscular Hemoglobin 31.2 pg (26.0-33.0) Mean Corpuscular Hemoglobin Concent 33.8 g/dL (32.0-36.0) Red Cell Distribution Width 18.4 % (11.5-14.5) Platelet Count 64 K/uL (150-450) Mean Platelet Volume 9.0 fL (7.2-11.1) Neutrophils (%) (Auto) 83.2 % (39.4-72.5) Lymphocytes (%) (Auto) 11.0 % (17.6-49.6) Monocytes (%) (Auto) 5.2 % (4.1-12.4) Eosinophils (%) (Auto) 0.2 % (0.4-6.7) Basophils (%) (Auto) 0.4 % (0.3-1.4) Nucleated RBC Relative Count (auto) 0.1 /100WBC Neutrophils # (Auto) 7.7 K/uL (2.0-7.4) Lymphocytes # (Auto) 1.0 K/uL (1.3-3.6) Monocytes # (Auto) 0.5 K/uL (0.3-1.0) Eosinophils # (Auto) 0.0 K/uL (0.0-0.5) Basophils # (Auto) 0.0 K/uL (0.0-0.1) Nucleated RBC Absolute Count (auto) 0.01 K/uL Peripheral Blood Smear Yes Y/N Glomerular Filtration Rate Calc > 60.0 Calcium Level 9.3 mg/dl (8.4-10.2) Total Bilirubin 5.6 mg/dl (0.2-1.3) Aspartate Amino Transf (AST/SGOT) 108 U/L (0-35) Alanine Aminotransferase (ALT/SGPT) 84 U/L (0-56) Alkaline Phosphatase 162 U/L (0-126) Total Protein 8.3 g/dl (6.3-8.2) Albumin 4.2 g/dl (3.5-5.0) Amylase Level 541 U/L (0-110) Lipase 6573 U/L (23-300) Serum Alcohol 258 mg/dl Urine Color Bridgette Urine Clarity Clear Urine pH 6.0 pH (4.8-9.5) Urine Specific [place] 1.016 Urine Protein 100 mg/dL (NEGATIVE) Urine Glucose (UA) 150 mg/dL (NEGATIVE) Urine Ketones 20 mg/dL (NEGATIVE) Urine Blood Small (NEGATIVE) Urine Nitrite Negative (NEGATIVE) Urine Bilirubin Negative (NEGATIVE) Urine Urobilinogen Negative mg/dL (0.2-1.9) Urine Leukocyte Esterase Negative (NEGATIVE) Urine RBC 1 /HPF (0-2/HPF) Urine WBC None /HPF (0-5/HPF) Urine Squamous Epithelial Cells None /LPF (</=FEW) Urine Bacteria Negative /HPF (NONE-FEW) Urine Hyaline Casts Few /LPF (NONE-FEW) Urine Mucus None /HPF (NONE-FEW) Urine Opiates Screen Negative Urine Barbiturates Screen Negative Ur Tricyclic Antidepressants Screen Negative Urine Phencyclidine Screen Negative Urine Amphetamines Screen Negative Urine Benzodiazepines Screen Negative Urine Cocaine Screen Negative Urine Cannabinoids Screen Negative Toxicology Test 06/02/18 01:17 06/02/18 01:32 Serum Alcohol 258 mg/dl Urine Opiates Screen Negative Urine Barbiturates Screen Negative Ur Tricyclic Antidepressants Screen Negative Urine Phencyclidine Screen Negative Urine Amphetamines Screen Negative Urine Benzodiazepines Screen Negative Urine Cocaine Screen Negative Urine Cannabinoids Screen Negative Urinalysis Test 06/02/18 01:32 Urine Color Bridgette Urine Clarity Clear Urine pH 6.0 pH (4.8-9.5) Urine Specific [place] 1.016 Urine Protein 100 mg/dL (NEGATIVE) Urine Glucose (UA) 150 mg/dL (NEGATIVE) Urine Ketones 20 mg/dL (NEGATIVE) Urine Blood Small (NEGATIVE) Urine Nitrite Negative (NEGATIVE) Urine Bilirubin Negative (NEGATIVE) Urine Urobilinogen Negative mg/dL (0.2-1.9) Urine Leukocyte Esterase Negative (NEGATIVE) Urine RBC 1 /HPF (0-2/HPF) Urine WBC None /HPF (0-5/HPF) Urine Squamous Epithelial Cells None /LPF (</=FEW) Urine Bacteria Negative /HPF (NONE-FEW) Urine Hyaline Casts Few /LPF (NONE-FEW) Urine Mucus None /HPF (NONE-FEW) ED Course/Re-evaluation Clinical Indication for ER IV: Hydration, IV Access ED Course CBC is unremarkable other than his thrombocytopenia. He has changes in his liver function tests as expected. Amylase and lipase are significantly elevated. He has had a liter of normal saline as well as Zofran for nausea. We did give him some Protonix as well. I discussed the case with Dr. Olinda Gaitan who admitted the patient for pancreatitis. Decision to Disposition Date: Jun 02, 2018 Decision to Disposition Time: 03:00 Depart Departure Latest Vital Signs Vital Signs Date Time Temp Pulse Resp B/P (MAP) Pulse Ox O2 Delivery O2 Flow Rate FiO2 06/02/18 03:28 115 91 06/02/18 03:08 189/120 (143) 06/02/18 02:00 2.0 06/02/18 00:47 98.3 18 Room Air Impression: Primary Impression: Pancreatitis Additional Impressions: Alcohol intoxication Alcohol use disorder, severe, dependence Condition: Condition Unchanged Disposition: Admitted from ER Referrals: JEFERSON BILL (PCP) Problem Qualifiers Primary Impression: Pancreatitis Chronicity: acute Pancreatitis type: alcohol induced Acute pancreatitis complication: unspecified Qualified Codes: K85.20 - Alcohol induced acute pancreatitis without necrosis or infection Additional Impressions: Alcohol intoxication Complication of substance-induced condition: with unspecified complication Qualified Codes: F10.929 - Alcohol use, unspecified with intoxication, unspecified SHEFALI RODGERS MD Jun 02, 2018 00:56
[2018-06-02] MEDS ORDERED: ONDANSETRON 4 MG/2 ML VIAL IVP ONE (01:05)
[2018-06-02] MEDS ORDERED: PANTOPRAZOLE SOD 40 MG IV VIAL IVP ONE (01:05)
[2018-06-02] MEDS ORDERED: NS(*) 0.9% 1000 ML BAG 1,000 ML IV ONE (01:05)
[2018-06-02 01:57] LABS: PLATELET COUNT, AUTOMATED 64 K/uL (150-450)
[2018-06-02] MEDS ORDERED: PROMETHAZINE 25 MG/ML 1 ML AMP IVP ONE (02:15)
[2018-06-02] MEDS ORDERED: MORPHINE 4 MG/ML SDV IVP ONE (03:05)
[2018-06-02] MEDS ORDERED: LR(*) 1000 ML BAG 1,000 ML IV PRN (03:40)
[2018-06-02] MEDS ORDERED: FLUSH 10 ML SYR IVP PRN (03:40)
[2018-06-02] MEDS ORDERED: ALBUTEROL 2.5 MG/3 ML NEB NEB PRN (03:40)
[2018-06-02] MEDS ORDERED: LORazepam 2 MG/ML VIAL IVP PRN (03:50)
[2018-06-02] MEDS ORDERED: SUCR1TAB51 PO (03:52)
[2018-06-02] MEDS ORDERED: OMEP2.5S (03:52)
--- NOTE | 2018-06-02 04:00 | History & Physical ---
History of Present Illness Chief Complaint abdominal pain History of Present Illness 62M presented with 2-3 days increasing abdominal pain and nausea. PMHx significant for cirrhosis, EtOH abuse. Reportedly thought he drank too much today and came in with abdominal pain. In ER noted to have typical epigastric pain and lipase > 6000. Labs do not show severe dehydration, he is positive for EtOH and reports drinking daily. Is willing to consider possible rehab. History Problems: (1) Alcohol dependence Status: Chronic (2) Pancreatitis Status: Resolved (3) Hypothyroidism Status: Chronic (4) Esophageal varices Home Meds Active Scripts Albuterol Sulfate 90 Mcg/Act (PROAIR HFA 90 MCG/ACT) 8.5 Gm Hfa.aer.ad, 2 PUFF IH Q4-6H PRN for SHORTNESS OF BREATH, #0 INHALER Prov:SHASHI WATSON MD 12/16/15 Reported Medications Sucralfate (SUCRALFATE) 1 Gm Tablet, 1 GM PO 06/02/18 Omeprazole Magnesium (PRILOSEC) 2.5 Mg Suspdr.pkt 06/02/18 Trazodone Hcl (TRAZODONE HCL) 100 Mg Tablet, 100 MG PO QHS, TAB 02/25/18 Cyanocobalamin (Vitamin B-12) (Vitamin B-12) 2,000 Mcg Tablet, 1 MCG PO DAILY 02/27/17 Thiamine Hcl (THIAMINE HCL) 100 Mg Tablet, 100 MG PO QDAY 01/29/17 Folic Acid (FOLIC ACID) 1 Mg Tablet, 1 MG PO QDAY, TAB 01/29/17 Tamsulosin Hcl (TAMSULOSIN HCL) 0.4 Mg Cap.er.24h, 0.4 MG PO QDAY, CAP 01/27/17 Rifaximin (XIFAXAN) 550 Mg Tablet, 550 MG PO BID 01/26/17 Levothyroxine Sodium (LEVOTHYROXINE SODIUM) 100 Mcg Tablet, 200 MCG PO QDAY, TAB 01/26/17 [iron] No Conflict Check, 325 MG PO QDAY 01/26/17 Pediatric Multivit Comb No.76 (Flintstones Complete) 1 Each Tab.chew, 1 TAB PO QDAY 01/26/17 Spironolactone (ALDACTONE) 100 Mg Tablet, 100 MG PO QDAY 01/26/17 Allopurinol (Zyloprim) 300 Mg Tab, 300 MG PO QDAY, 0 Refills 03/09/10 Discontinued Scripts Potassium Chloride (POTASSIUM CHLORIDE) 10 Meq Tablet.er, 10 MEQ PO QDAY, #14 TAB 1 Refill Prov:LIBORIO JAMA MD 03/03/17 Allergies: Coded Allergies: No Known Drug Allergies (Verified , 06/02/18) Patient History: FHx: Alzheimer's disease MOTHER (dementia, DM), , Age:70 Hx Smoking: Yes Smoking Status: Former Smoker Exposure to Second Hand Smoke?: No Caffeine Intake: Coffee Caffeine/Cups Per Day: 1 cup in the AM Hx Alcohol Use: Yes Hx Substance Use Disorder: No Social Drug Use: Never Review of Systems All Systems Reviewed/Normal: Yes, Except as Noted Constitutional: No Fever, No Chills Gastrointestinal: Nausea, Abdominal Pain Genitourinary: No Dysuria Exam Vital Signs Vital Signs Date Time Temp Pulse Resp B/P (MAP) Pulse Ox O2 Delivery O2 Flow Rate FiO2 06/02/18 03:30 168/94 (118) 06/02/18 03:28 115 91 06/02/18 02:00 2.0 06/02/18 00:47 98.3 18 Room Air General Appearance: Alert, Awake, No Acute Distress, Afebrile Neuro: No Gross deficits ENT: Normal Cardiovascular: Normal Rhythm & Peripheral Pulses Respiratory: No Respiratory Distress GI: Other (distended abdomen, + fluid wave) Musculoskeletal: No Weakness/Pain Extremities: Soft and Non Tender, Warm, Pulses, Perfused Integumentary: Skin Intact without Lesion / Mass Medical Decision Making Data Points Result Diagram: 06/02/1811606/02/18116 Assessment and Plan Problems: (1) Acute pancreatitis Assessment & Plan: Typical abdominal pain, lipase > 6000. Will hydrate with LR and pain control. NPO except for medications, chips and sips. (2) Alcohol dependence Status: Chronic Assessment & Plan: Consulted [facility] for resources for patient given voiced openness to detox. (3) Hypothyroidism Status: Chronic Assessment & Plan: Continue chronic 200mcg levothyroxine. (4) Cirrhosis Status: Chronic Assessment & Plan: On spironolactone, rifaximin. Will resume spironolactone after hydration. Continued rifaximin. History of banded varices. Central Venous Access Medical Necessity for Access: Hemodynamic Monitoring, IV Access, Medication Administration Venous Thromboembolism Antithrombotics Is Pt On Any Antithrombotics?: Yes Exam Sepsis Risk: No Definite Risk LOREN HODGSON DO Jun 02, 2018 04:00
[2018-06-02] MEDS: HYDROmorphone HCL 2 MG/ML SDV IVP PRN ×3 (04:16→13:04)
[2018-06-02] MEDS: LEVOTHYROXINE SOD 0.1 MG TAB PO SCH (06:00)
[2018-06-02] MEDS ORDERED: DIAZEPAM 10 MG TAB ONE (07:43)
[2018-06-02] MEDS: DIAZEPAM 10 MG TAB PO PRN ×11 (08:48→23:53)
[2018-06-02] MEDS ORDERED: ENOXAPARIN 40 MG/0.4ML SYR SC SCH (09:00)
[2018-06-02] MEDS ORDERED: INFLUENZA VIRUS VAC 0.5ML SYR IM ONLY ONE (09:00)
[2018-06-02] MEDS: FOLIC ACID 1 MG TAB PO SCH (09:00)
[2018-06-02] MEDS: RIFAXIMIN 550 MG TABLET PO SCH ×2 (09:00→20:21)
[2018-06-02] MEDS: THIAMINE HCL 100 MG TAB PO SCH (09:00)
[2018-06-02] MEDS: ALLOPURINOL 300 MG TAB PO SCH (09:00)
[2018-06-02] MEDS: TAMSULOSIN HCL 0.4 MG CAP PO SCH (09:01)
[2018-06-02] MEDS: ENOXAPARIN 30 MG/0.3 ML SYR SC SCH (09:01)
--- NOTE | 2018-06-02 10:06 | Hospitalist Progress Note ---
Subjective Progress Notes Subjective This patient was admitted for pancreatitis and alcohol withdrawal. He had no acute events since admission. Patient Complains of: Cardiovascular: No: Chest Pain Respiratory: No: Shortness of Breath Physical Exam Vital Signs Date Time Temp Pulse Resp B/P (MAP) Pulse Ox O2 Delivery O2 Flow Rate FiO2 06/02/18 09:53 98.4 134 18 187/110 (135) 91 Nasal Cannula 3.0 Intake and Output 06/02/18 07:00 Intake Total 600 ml Balance 600 ml Intake IV Total 600 ml Cardiovascular: Regular Rate and Rhythm Respiratory: Clear to Auscultation Result Diagram: 06/02/18 0117 06/02/18 0525 Assessment and Plan Problems: (1) Acute pancreatitis Assessment & Plan: He presented with abdominal pain, and was found to have an elevated lipase level. He is currently NPO. A repeat lipase is ordered for the morning. (2) Hypothyroidism Status: Chronic Assessment & Plan: He is on chronic treatment with Synthroid. (3) Cirrhosis Status: Chronic Assessment & Plan: He is on chronic treatment with spironolactone and rifaximin. The spironolactone is currently on hold. He remains on rifaximin. (4) Alcohol withdrawal Status: Acute Assessment & Plan: He is on CIWA protocol and did require treatment overnight. He is on thiamine. Central Venous Access Medical Necessity for Access: Hemodynamic Monitoring, IV Access, Medication Administration Exam Sepsis Risk: No Definite Risk LINO MESSINA DO Jun 02, 2018 10:06
--- NOTE | 2018-06-02 11:07 | Medical Nutrition Therapy ---
Nutrition Anthropometrics Height (Inches): 67 Weight (Pounds): 225 Weight (Calculated Kilograms): 102.285 BMI: 35.3 [place] Nutrition Score: Adequate [place] Nutrition Risk Score: 18 Dietary Referral Nutrition Risk Factors: Nutrition Risk Comment: PT HAD GASTRIC BYPASS Physical Findings Physical Appearance: Obese BMI 30-39 Skin Appearance Skin Appearance: Edema Edema Location Modifier: Edema Location: Type of Edema: Degree of Edema: Gastrointestinal Symptoms GI Symtoms: Nausea Tube Present: Bowel Sounds: Recent Bowel Pattern: Stool Characteristics: Nutritional Diagnosis Nutritional Risk Acuity 2: Pancreatitis, Liver Cirrhosis Nutritional Risk Acuity 3: Nausea, Alcohol abuse Past Medical History: HTN, gastric bypass, COPD, alchohol abuse, steatosis of liver, CHF, CAD, Esophageal varices Nutritional Acuity: 2-Moderate Nutrition Diagnosis: Over-weight/Obesity, Excessive Alcohol Intake Nutrition Problem/Etiology/Sym: Excessive alcohol intake and obesity r/t alcohol addiction AEB pt consuming 1/2- 1 pint of alcohol per day, liver cirrhosis, and BMI of 35.3. Adjusted Energy Requirement Re: 1980 (H- B adj for obesity) Protein Requirement: 86 (1.2gm/kg IBW) Fluid Requirement: 2500 (25gm/kg ABW) Diet Type: NPO (Nothing by Mouth) Nutrition Intervention: Incr diet as tolerated Nutrition Monitoring & Eval Nutrition Goals: Eat 75-100% Meal RD Patient Assessment Time: [address] Assessment Type: RD Assessment Patient Nutrition Acuity: 2-Moderate Follow Up Date: Jun 06, 2018 Nutritional Comment: 06/02 Pt admitted for pancretitis with alcohol abuse. Pt reported drinking 1/2- 1 pt/day. Pt has hx of cirrosis. Nutr significant labs: lipase 6573, alb 3.2, Bg 221, K+ 3.4. Pt is recieving thiamin and folic acid. Pt may benefit from K+ supplment r/t low K+. Random BG of 221 is within diabetes range. Pt has no hx of diabetes but mother diabetic. Pt curretnly NPO. Recommend advance to diabetic diet when appropriate. Will cont to monitor. CAROLINE RIOS Jun 02, 2018 11:07
[2018-06-02] MEDS: LR(*) 1000 ML BAG 1,000 ML IV PRN ×3 (11:26→23:21)
[2018-06-02] MEDS ORDERED: LABETALOL HCL 20 MG/4 ML SYR IVP ONE (13:20)
--- NOTE | 2018-06-02 14:36 | EKG ---
FACILITY: [facility] [place]IENT NAME: SUSI CHAN : [id number] MR: [id number] V: [id number] EXAM DATE: ORDERING PHYSICIAN: KASSIE ZHU TECHNOLOGIST: JULIAN Jimenez Reason : TACHY Blood Pressure : / mmHG Vent. Rate : 146 BPM Atrial Rate : 146 BPM P-R Int : 088 ms QRS Dur : 078 ms QT Int : 358 ms P-R-T Axes : 000 021 066 degrees QTc Int : 557 ms Sinus tachycardia with short [place] Otherwise normal ECG When compared with ECG of 25-FEB-2018 07:05, [place] interval has decreased Nonspecific T wave abnormality no longer evident in Inferior leads Confirmed by LINO MESSINA ([id number]) on 06/03/2018 6:29:57 AM Referred By: MAYURI Confirmed By:LINO MESSINA
[2018-06-03] VITALS (10 sets, daily range): BP systolic 108–180; BP diastolic 65–107
[2018-06-03] MEDS: ONDANSETRON 4 MG/2 ML VIAL IVP PRN (00:08)
[2018-06-03] MEDS: DIAZEPAM 10 MG TAB PO PRN ×14 (01:06→22:38)
[2018-06-03] MEDS: LEVOTHYROXINE SOD 0.1 MG TAB PO SCH (05:56)
[2018-06-03] MEDS: LR(*) 1000 ML BAG 1,000 ML IV PRN ×2 (05:56→13:50)
[2018-06-03] MEDS: ALLOPURINOL 300 MG TAB PO SCH (08:42)
[2018-06-03] MEDS: TAMSULOSIN HCL 0.4 MG CAP PO SCH (08:42)
[2018-06-03] MEDS: THIAMINE HCL 100 MG TAB PO SCH (08:42)
[2018-06-03] MEDS: FOLIC ACID 1 MG TAB PO SCH (08:42)
[2018-06-03] MEDS: RIFAXIMIN 550 MG TABLET PO SCH ×2 (08:42→22:37)
[2018-06-03] MEDS: ENOXAPARIN 30 MG/0.3 ML SYR SC SCH (08:43)
--- NOTE | 2018-06-03 11:45 | Hospitalist Progress Note ---
Subjective Progress Notes Subjective 62M admitted for pancreatitis. Would like to leave, having lots of withdrawal symptoms and receiving large doses benzo. Patient Complains of: Gastrointestinal: No Nausea, No Vomiting Physical Exam Vital Signs Date Time Temp Pulse Resp B/P (MAP) Pulse Ox O2 Delivery O2 Flow Rate FiO2 06/03/18 10:15 97.8 127 24 176/107 (130) 94 Nasal Cannula 5.0 Intake and Output 06/03/18 06:59 Intake Total 4620 ml Output Total 403 ml Balance 4217 ml Intake Oral 630 ml IV Total 3990 ml Output Urine Total 403 ml # Voids 5 # Bowel Movements 1 # Emeses 1 General Appearance: No Acute Distress (+ tremmor, tachycardia), Afebrile Neuro: No Gross deficits ENT: Normal Cardiovascular: Normal Rhythm & Peripheral Pulses Respiratory: No Respiratory Distress GI: Other (+ fluid wave) Musculoskeletal: No Weakness/Pain Extremities: Soft and Non Tender, Warm, Pulses, Perfused Result Diagram: 06/02/18 0117 06/03/18 0550 Assessment and Plan Problems: (1) Acute pancreatitis Assessment & Plan: He presented with abdominal pain, and was found to have an elevated lipase level. Improved nausea, advance diet. (2) Hypothyroidism Status: Chronic Assessment & Plan: He is on chronic treatment with Synthroid. (3) Cirrhosis Status: Chronic Assessment & Plan: He is on chronic treatment with spironolactone and rifaximin. The spironolactone is currently on hold. He remains on rifaximin. (4) Alcohol withdrawal Status: Acute Assessment & Plan: He is on CIWA protocol and did require treatment overnight. He is on thiamine. Central Venous Access Medical Necessity for Access: Hemodynamic Monitoring, IV Access, Medication Adm inistration Exam Sepsis Risk: No Definite Risk LOREN HODGSON DO Jun 03, 2018 11:45
[2018-06-03] MEDS ORDERED: CLOB30CR3 TP (17:21)
[2018-06-03] MEDS ORDERED: TRAZ50TA34 PO (17:21)
[2018-06-03] MEDS ORDERED: OMEP20CA68 PO (17:21)
[2018-06-03] MEDS ORDERED: CHOL500016 PO (17:21)
[2018-06-03] MEDS ORDERED: FERR240T15 PO (17:21)
[2018-06-03] MEDS ORDERED: CYA1000 PO (17:21)
[2018-06-03] MEDS ORDERED: BLOO1STR16 MC (17:21)
[2018-06-04] VITALS (7 sets, daily range): BP systolic 103–181; BP diastolic 53–105
[2018-06-04] MEDS: DIAZEPAM 10 MG TAB PO PRN ×5 (00:02→20:55)
[2018-06-04] MEDS: LR(*) 1000 ML BAG 1,000 ML IV PRN ×2 (00:03→10:40)
[2018-06-04] MEDS: LEVOTHYROXINE SOD 0.1 MG TAB PO SCH (05:38)
[2018-06-04] MEDS: ENOXAPARIN 30 MG/0.3 ML SYR SC SCH (08:19)
[2018-06-04] MEDS: RIFAXIMIN 550 MG TABLET PO SCH ×2 (08:19→20:55)
[2018-06-04] MEDS: ALLOPURINOL 300 MG TAB PO SCH (08:19)
[2018-06-04] MEDS: THIAMINE HCL 100 MG TAB PO SCH (08:19)
[2018-06-04] MEDS: TAMSULOSIN HCL 0.4 MG CAP PO SCH (08:19)
[2018-06-04] MEDS: FOLIC ACID 1 MG TAB PO SCH (08:19)
[2018-06-04] MEDS ORDERED: MAGNESIUM SUL* 2 GM/50 ML IVPB 50 ML IVPB ONE (10:45)
--- NOTE | 2018-06-04 12:33 | Hospitalist Progress Note ---
Subjective Progress Notes Subjective He is somewhat somnolent, but does awaken and answer all questions. No abdominal pain. No N/V. Physical Exam Vital Signs Date Time Temp Pulse Resp B/P (MAP) Pulse Ox O2 Delivery O2 Flow Rate FiO2 06/04/18 10:41 98.8 122 24 166/98 (120) 96 High-Flow Nasal Cannula 5.0 Intake and Output 06/04/18 07:00 Intake Total 950 ml Balance 950 ml Intake Oral 0 ml IV Total 950 ml # Voids 6 General Appearance: Other (Somewhat somnolent, but does awaken and answer all questions) Neuro: No Gross deficits Cardiovascular: Regular Rate and Rhythm Respiratory: Clear to Auscultation GI: Soft and Non-Tender (BS present) : No CVA Tenderness Extremities: Warm, Perfused Result Diagram: 06/02/18 0117 06/04/18 0525 Assessment and Plan Problems: (1) Acute pancreatitis Status: Acute Assessment & Plan: Due to alcohol. Clinically improved. He presented with abdominal pain and was found to have an elevated lipase level (>6000). Will advance diet to low fat. Watch labs. (2) Hypothyroidism Status: Chronic Assessment & Plan: He is on chronic treatment with Synthroid. (3) Cirrhosis Status: Chronic Assessment & Plan: He is on chronic treatment with spironolactone and rifaximin. The spironolactone is currently on hold. He remains on rifaximin. (4) Alcohol withdrawal Status: Acute Assessment & Plan: Clinically improved today. He is on CIWA protocol and has required treatment with benzodiazepines. He is also on thiamine. Will need to have substance abuse counselor see him to discuss options to maintain abstinence. Central Venous Access Medical Necessity for Access: Hemodynamic Monitoring, IV Access, Medication Administration Exam Sepsis Risk: Severe Sepsis Risk LIBORIO JAMA MD Jun 04, 2018 12:33
[2018-06-04] MEDS ORDERED: KCL (*) 20 MEQ/100 ML PREMIX 100 ML IV ONE (14:00)
[2018-06-04] MEDS: ONDANSETRON 4 MG/2 ML VIAL IVP PRN (20:55)
[2018-06-05 00:18] VITALS: BP 167/101
[2018-06-05] MEDS: LR(*) 1000 ML BAG 1,000 ML IV PRN (00:31)
[2018-06-05 04:05] VITALS: BP 163/97
[2018-06-05] MEDS: LEVOTHYROXINE SOD 0.1 MG TAB PO SCH (06:19)
[2018-06-05] MEDS: ONDANSETRON 4 MG/2 ML VIAL IVP PRN (06:26)
[2018-06-05] MEDS: HYDROmorphone HCL 2 MG/ML SDV IVP PRN (06:32)
[2018-06-05 06:46] LABS: PLATELET COUNT, AUTOMATED 36 K/uL (150-450)
[2018-06-05 07:45] VITALS: BP 167/104
[2018-06-05] MEDS: TAMSULOSIN HCL 0.4 MG CAP PO SCH (09:12)
[2018-06-05] MEDS: POTASSIUM CHL 20 MEQ TABCR PO SCH ×2 (09:13→16:42)
[2018-06-05] MEDS: RIFAXIMIN 550 MG TABLET PO SCH ×2 (09:13→20:39)
[2018-06-05] MEDS: THIAMINE HCL 100 MG TAB PO SCH (09:13)
[2018-06-05] MEDS: ALLOPURINOL 300 MG TAB PO SCH (09:13)
[2018-06-05] MEDS: FOLIC ACID 1 MG TAB PO SCH (09:13)
--- NOTE | 2018-06-05 10:47 | Hospitalist Progress Note ---
Subjective Progress Notes Subjective This patient was admitted for pancreatitis and alcohol withdrawal. He had no acute events overnight. Patient Complains of: Cardiovascular: No: Chest Pain Respiratory: No: Shortness of Breath Physical Exam Vital Signs Date Time Temp Pulse Resp B/P (MAP) Pulse Ox O2 Delivery O2 Flow Rate FiO2 06/05/18 07:45 98.5 102 32 167/104 (125) 96 High-Flow Nasal Cannula 5.0 Intake and Output 06/05/18 07:00 Intake Total 3683 ml Balance 3683 ml Intake Oral 1120 ml IV Total 2563 ml # Voids 6 # Bowel Movements 2 Cardiovascular: Regular Rate and Rhythm Respiratory: Clear to Auscultation GI: Soft and Non-Tender Result Diagram: 06/05/1854006/05/18540 Assessment and Plan Problems: (1) Acute pancreatitis Status: Acute Assessment & Plan: He presented with abdominal pain and was found to have an elevated lipase level (>6000). He has since advanced his diet without problems. His lipase remains normal. (2) Hypothyroidism Status: Chronic Assessment & Plan: He is on chronic treatment with Synthroid. (3) Cirrhosis Status: Chronic Assessment & Plan: He is on chronic treatment with spironolactone and rifaximin. The spironolactone is currently on hold. He remains on rifaximin. (4) Alcohol withdrawal Status: Acute Assessment & Plan: He did require extensive treatment while on [facility] protocol. He has not required any treatment since last night. He is receiving thiamine, and plans to enter into a rehab facility upon discharge. Central Venous Access Medical Necessity for Access: Hemodynamic Monitoring, IV Access, Medication Administration Exam Sepsis Risk: Severe Sepsis Risk LINO MESSINA DO Jun 05, 2018 10:47
[2018-06-05 11:23] VITALS: BP 184/106
--- NOTE | 2018-06-05 13:35 | Medical Nutrition Therapy ---
Nutrition Anthropometrics Height (Inches): 67 Weight (Pounds): 225 Weight (Calculated Kilograms): 102.285 BMI: 35.3 Orlin Nutrition Score: Adequate Orlin Nutrition Risk Score: 18 Dietary Referral Nutrition Risk Factors: Nutrition Risk Comment: PT HAD GASTRIC BYPASS Nutritional Diagnosis Nutritional Risk Acuity 2: Pancreatitis, Liver Cirrhosis Nutritional Risk Acuity 3: Nausea, Alcohol abuse Past Medical History: HTN, gastric bypass, COPD, alchohol abuse, steatosis of liver, CHF, CAD, Esophageal varices Nutritional Acuity: 2-Moderate Nutrition Diagnosis: Over-weight/Obesity, Excessive Alcohol Intake Nutrition Problem/Etiology/Sym: Excessive alcohol intake and obesity r/t alcohol addiction AEB pt consuming 1/2- 1 pint of alcohol per day, liver cirrhosis, and BMI of 35.3. Adjusted Energy Requirement Re: 1979 (H- B adj for obesity) Protein Requirement: 86 (1.2gm/kg IBW) Fluid Requirement: 2500 (25gm/kg ABW) Diet Type: Low Fat Nutrition Intervention: Cont diet as ordered, Encourage intake Additional Diet Restrictions: PUT PROTEIN POWDER IN APPROPRIATE FOODS Nutrition Monitoring & Eval Nutrition Goals: Eat 75-100% Meal Nutrition Follow-Up: Fair Intake RD Patient Assessment Time: [address] Assessment Type: RD Re-Assessment Patient Nutrition Acuity: 2-Moderate Follow Up Date: Jun 16, 2018 Nutritional Comment: 06/02 Pt admitted for pancretitis with alcohol abuse. Pt reported drinking 1/2- 1 pt/day. Pt has hx of cirrosis. Nutr significant labs: lipase 6573, alb 3.2, Bg 221, K+ 3.4. Pt is recieving thiamin and folic acid. Pt may benefit from K+ supplment r/t low K+. Random BG of 221 is within diabetes range. Pt has no hx of diabetes but mother diabetic. Pt curretnly NPO. Recommend advance to diabetic diet when appropriate. Will cont to monitor. BK 06/05 Diet advanced to low fat. Pt ate 75% of small portions. Alb declined to 2.6. Will add protein powder to appropriate foods. Bg cont elevated in 200's. Will cont to monitor and encourage intake. CAROLINE RIOS Jun 05, 2018 13:35
[2018-06-05 15:23] VITALS: BP 149/99
[2018-06-05 19:42] VITALS: BP 134/78
[2018-06-06] MEDS: DIAZEPAM 10 MG TAB PO PRN (00:44)
[2018-06-06 03:19] VITALS: BP 164/106
[2018-06-06] MEDS: LEVOTHYROXINE SOD 0.1 MG TAB PO SCH (06:04)
[2018-06-06 07:51] VITALS: BP 157/97
[2018-06-06] MEDS: ALLOPURINOL 300 MG TAB PO SCH (08:31)
[2018-06-06] MEDS: POTASSIUM CHL 20 MEQ TABCR PO SCH (08:31)
[2018-06-06] MEDS: FOLIC ACID 1 MG TAB PO SCH (08:31)
[2018-06-06] MEDS: RIFAXIMIN 550 MG TABLET PO SCH (08:31)
[2018-06-06] MEDS: TAMSULOSIN HCL 0.4 MG CAP PO SCH (08:32)
[2018-06-06] MEDS: THIAMINE HCL 100 MG TAB PO SCH (08:32)
[2018-06-06 12:48] VITALS: BP 145/76
--- NOTE | 2018-06-06 13:51 | Hospitalist Depart ---
Discharge Summary Reason for Hosp/Final Diag: (1) Acute pancreatitis Status: Acute Hospital Course & Plan: He presented with abdominal pain and was found to have an elevated lipase level (>6000). He has since advanced his diet without problems. (2) Hypothyroidism Status: Chronic Hospital Course & Plan: He is on chronic treatment with Synthroid. (3) Cirrhosis Status: Chronic Hospital Course & Plan: He is on chronic treatment with spironolactone and rifaximin. The spironolactone is currently on hold. He remains on rifaximin. (4) Alcohol withdrawal Status: Acute Hospital Course & Plan: He did require extensive treatment while on [facility] protocol. He has not required any treatment since last night. He is receiving thiamine, and plans to enter into a rehab facility upon discharge. (5) Chronic hypoxemic respiratory failure Hospital Course & Plan: He is requiring O2 supplementation, he was set up with home O2. Departure Weight (Pounds): 225 Weight (Ounces): 8.0 Result Diagram: 06/05/1854006/05/18540 Condition: Improved Discharge: Home Discharge Instructions Home Meds Active Scripts Albuterol Sulfate 90 Mcg/Act (PROAIR HFA 90 MCG/ACT) 8.5 Gm Hfa.aer.ad, 2 PUFF IH Q4-6H PRN for SHORTNESS OF BREATH, #0 INHALER Prov:SHASHI WATSON MD 12/16/15 Reported Medications Blood Sugar Diagnostic (FREESTYLE LITE TEST STRIPS) 1 Each Strip, 1 EACH MC BID, STRIP 06/03/18 Clobetasol Propionate 0.5% 30 Gm Cream (TEMOVATE 0.5% 30 GM CREAM) 30 Gm Cream..g., 1 G TP BID, GM PRN SKIN FLARE-UPS 06/03/18 Cholecalciferol (Vitamin D3) (VITAMIN D3) 5,000 Unit Capsule, 1 CAPSULE PO QDAY, CAPSULE 06/03/18 Ferrous Gluconate (FERGON) 240 Mg Tablet, 240 MG PO QDAY 06/03/18 Omeprazole Magnesium (OMEPRAZOLE MAGNESIUM) 20 Mg Capsule.dr, 20 MG PO BID, CAP 06/03/18 Trazodone Hcl (TRAZODONE HCL) 50 Mg Tablet, 50 MG PO QHS 06/03/18 Cyanocobalamin (Vitamin B-12) (VITAMIN B-12) 1,000 Mcg Tablet, 1000 MCG PO QDAY 06/03/18 Sucralfate (SUCRALFATE) 1 Gm Tablet, 1 GM PO 06/02/18 Folic Acid (FOLIC ACID) 1 Mg Tablet, 1 MG PO QDAY, TAB 01/29/17 Tamsulosin Hcl (TAMSULOSIN HCL) 0.4 Mg Cap.er.24h, 0.4 MG PO QDAY, CAP 01/27/17 Rifaximin (XIFAXAN) 550 Mg Tablet, 550 MG PO BID 01/26/17 Levothyroxine Sodium (LEVOTHYROXINE SODIUM) 100 Mcg Tablet, 200 MCG PO QDAY, TAB 01/26/17 Pediatric Multivit Comb No.76 (Flintstones Complete) 1 Each Tab.chew, 1 TAB PO QDAY 01/26/17 Spironolactone (ALDACTONE) 100 Mg Tablet, 100 MG PO QDAY 01/26/17 Allopurinol (Zyloprim) 300 Mg Tab, 300 MG PO QDAY, 0 Refills 03/09/10 Discontinued Reported Medications Omeprazole Magnesium (PRILOSEC) 2.5 Mg Suspdr.pkt 06/02/18 Trazodone Hcl (TRAZODONE HCL) 100 Mg Tablet, 100 MG PO QHS, TAB 02/25/18 Cyanocobalamin (Vitamin B-12) (Vitamin B-12) 2,000 Mcg Tablet, 1 MCG PO DAILY 02/27/17 Thiamine Hcl (THIAMINE HCL) 100 Mg Tablet, 100 MG PO QDAY 01/29/17 [iron] No Conflict Check, 325 MG PO QDAY 01/26/17 Discontinued Scripts Potassium Chloride (POTASSIUM CHLORIDE) 10 Meq Tablet.er, 10 MEQ PO QDAY, #14 TAB 1 Refill Prov:LIBORIO JAMA MD 03/03/17 Venous Thromboembolism Antithrombotics Is Pt On Any Antithrombotics?: Yes LOREN HODGSON DO Jun 06, 2018 13:51
== END 2018-06-06 15:06 | disposition home or self-care (01) | DRG 439 ==
LOC: ER 01:21 → MED 03:29
PROVIDERS: ADMIT Internal Medicine; ATTEND Internal Medicine
DX: K85.20 Alcohol induced acute pancreatitis without necrosis or infection (principal); F10.230 Alcohol dependence with withdrawal, uncomplicated; J96.11 Chronic respiratory failure with hypoxia; I85.00 Esophageal varices without bleeding; K70.30 Alcoholic cirrhosis of liver without ascites; E86.0 Dehydration; E03.9 Hypothyroidism, unspecified; Y90.8 Blood alcohol level of 240 mg/100 ml or more
CPT/HCPCS: 36415; 80305; 80320; 81001; 82040; 82150; 82247; 82310; 82374; 82435; 82565; 82947; 83690; 83735; 84075; 84132; 84155; 84295; 84450; 84460; 84520; 85025; 93005; 96361; 96374; 96375; 99285; C9113; J1170; J1650; J2270; J2405; J2550; J3475; J3480; J7030; J7120

== ENCOUNTER → 2018-06-17 | Outpatient (CLI) | payer OTHER ==
[2017-02-28 15:59] VITALS: BMI 36.3
[~2018-06-17] MED LIST changes: +BLOO1STR16 MC; +CHOL500016 PO; +CLOB30CR3 TP; +CYA1000 PO; +FERR240T15 PO; +OMEP2.5S; +OMEP20CA68 PO
[2018-06-17 13:45] LABS: PLATELET COUNT, AUTOMATED 46 K/uL (150-450)
== END ==
LOC: LAB 10:59
PROVIDERS: ATTEND Nurse Practitioner Family
DX: K72.00 Acute and subacute hepatic failure without coma (principal); K70.0 Alcoholic fatty liver; J44.9 Chronic obstructive pulmonary disease, unspecified; E11.9 Type 2 diabetes mellitus without complications; E06.3 Autoimmune thyroiditis; R60.0 Localized edema; D69.6 Thrombocytopenia, unspecified; E53.8 Deficiency of other specified B group vitamins; D51.0 Vitamin B12 deficiency anemia due to intrinsic factor deficiency
CPT/HCPCS: 36415; 82040; 82140; 82150; 82247; 82310; 82374; 82435; 82565; 82607; 82947; 83036; 83690; 84075; 84132; 84155; 84295; 84443; 84450; 84460; 84520; 85025

== ENCOUNTER → 2018-06-30 | Outpatient (CLI) | payer OTHER ==
[2017-02-28 15:59] VITALS: BMI 36.3
== END ==
LOC: LAB 13:16
PROVIDERS: ATTEND Nurse Practitioner Family
DX: E87.8 Other disorders of electrolyte and fluid balance, not elsewhere classified (principal); R53.81 Other malaise; R73.01 Impaired fasting glucose
CPT/HCPCS: 36415; 82040; 82247; 82310; 82374; 82435; 82565; 82947; 83036; 84075; 84132; 84155; 84295; 84443; 84450; 84460; 84520; 85027

== ENCOUNTER → 2018-07-30 | Outpatient (CLI) | payer OTHER ==
[2017-02-28 15:59] VITALS: BMI 36.3
[2018-07-30 10:25] LABS: PLATELET COUNT, AUTOMATED 34 K/uL (150-450)
== END ==
LOC: LAB 09:19
PROVIDERS: ATTEND Nurse Practitioner Family
DX: K72.00 Acute and subacute hepatic failure without coma (principal); K70.0 Alcoholic fatty liver; J44.9 Chronic obstructive pulmonary disease, unspecified; E11.9 Type 2 diabetes mellitus without complications; E06.3 Autoimmune thyroiditis; R60.0 Localized edema; D69.6 Thrombocytopenia, unspecified; D51.0 Vitamin B12 deficiency anemia due to intrinsic factor deficiency; E53.8 Deficiency of other specified B group vitamins
CPT/HCPCS: 36415; 82040; 82140; 82150; 82247; 82310; 82374; 82435; 82565; 82607; 82947; 83036; 83690; 84075; 84132; 84155; 84295; 84443; 84450; 84460; 84520; 85025

== ENCOUNTER 2018-08-06 08:15 | Outpatient (RCR) | payer OTHER ==
[2017-02-28 15:59] VITALS: BMI 36.3
--- NOTE | 2018-07-14 11:37 | PT INITIAL EVALUATION ---
MEDICAL DIAGNOSIS: R53.1 General weakness, M62.81 Muscle weakness, G62.1 Alcoholic peripheral TREATMENT DIAGNOSIS: Same DATE OF ONSET: 06/02/18 SUBJECTIVE: Yong Gomez (Mike) presents to PT for general weakness after pancreatitis, alcohol detox at [facility] [place]. He needs to get stronger to be able to do inpatient alcohol rehabilitation. He lives with his in a single level home, 3 stairs into his home with railing. Pain location is B feet and ankles and described as constant ache. Pain scale is 4 on a ten point pain scale. REHAB PROBLEM LIST: Increased Pain Decreased ROM Decreased Strength Decreased Endurance Decreased Balance Decreased Gait PREVIOUS MEDICAL HISTORY: ETOH abuse, thyroid disorder, gout, depression, B feet/ankle crush injury (~20 years ago), anemia, thrombocytopenia, COPD. OCCUPATION: Retired, [employer]. OBJECTIVE: Posture: Heels 8" apart ROM: Ankle AROM DF R -5 deg., L -10 deg. from neutral. Strength: Quads 4-/5, hamstrings 3+/5, Tib. ant. B 5-/5, hip abductors 3+/5. Sensation: NT Special Tests: O2 on room air 97% at rest, HR 90. Mobility: Independent. Turns slowly with balance control, weight shifts well. Gait: Slow cadance, feet don't pass each other but clear the floor, late heelstrike B. Balance: Rush Balance Assessment 41/56, a fall risk. Robbin is able to lift a foot, holds 1-2 seconds. ASSESSMENT: Yong Gomez presents with weakness, fall risk, altered balance. He did well with strengthening today. Short Term Goals/Patient's Goals 4 to 6 weeks: Robbin is strong enough to attend alcohol rehabilitation. PLAN: Patient to be seen for Strengthening/condition, Stretching, Neuromuscular Re-ed, Gait Trg/Balance Trg, Home Exercise Program 3x/Week for 6 Weeks Thank you for this referral. If you have any questions, comments, or concerns about this report or plan, please contact me at . [facility]
--- NOTE | 2018-08-06 08:52 | PT PLAN OF CARE ---
Physician: Alejandra Anderson NP Patient is being seen: 3x/week Therapist: Gladys John PT Medical Diagnosis: R53.1 General weakness, M62.81 Muscle weakness, G62.1 Alcoholic peripheral neuropathy Treatment Diagnosis: Same Date of Onset: 06/02/18 Date of Initial Evaluation: 07/14/18 Date patient was last seen: 08/04/18 Number of treatments: 8 Number of cancellations/No shows: 0 INTERVENTIONS: Strengthening/condition Stretching Neuromuscular Re-ed Gait Trg/Balance Trg Home Exercise Program GOALS/PATIENT'S GOAL: 4 to 6 weeks: Robbin is strong enough to attend alcohol rehabilitation. 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 He feels he's ready for IOP. His R knee has flared with PT exercises, 5/10 ache, 2-3/10 while working on tires (has a mat to stand on). Posture: Heels 3" apart Gait: Mild R limp, normal cadance. Strength: L quad improved to 80#. Safety Aide strength 72# x3 R, 60, 55, 50# L (WNL 60- 65 y/o male). Balance: Rush Balance Assessment 55/56, not a fall risk. Mobility: Independent. Turns <4 seconds. A/P: Yong Gomez has improved strength and balance. He isn't tolerating even light R knee exercise. As his knee is hurting and he's achieved normal strength and balance, I'll DC PT. Thank you. MELLY
== END 2018-08-06 09:26 | disposition home or self-care (01) ==
LOC: PT 08:15
PROVIDERS: ATTEND Nurse Practitioner Family
DX: G62.1 Alcoholic polyneuropathy (principal); G31.2 Degeneration of nervous system due to alcohol; M62.81 Muscle weakness (generalized)
CPT/HCPCS: 97162

== ENCOUNTER → 2018-08-19 | Outpatient (CLI) | payer OTHER ==
[2017-02-28 15:59] VITALS: BMI 36.3
[2018-08-19 11:45] LABS: PLATELET COUNT, AUTOMATED 38 K/uL (150-450)
== END ==
LOC: LAB 09:42
PROVIDERS: ATTEND Nurse Practitioner Family
DX: K72.00 Acute and subacute hepatic failure without coma (principal); K70.0 Alcoholic fatty liver; G31.2 Degeneration of nervous system due to alcohol
CPT/HCPCS: 36415; 82040; 82140; 82247; 82310; 82374; 82435; 82565; 82947; 84075; 84132; 84155; 84295; 84450; 84460; 84520; 85025

== ENCOUNTER → 2018-10-20 | Outpatient (CLI) | payer OTHER ==
[2017-02-28 15:59] VITALS: BMI 36.3
[~2018-10-20] MED LIST changes: +MELA5TAB3 PO; -MELA5TAB6 PO; -TRAZ50TA34 PO; +TRAZ50TA52 PO
[2018-10-20 10:19] LABS: PLATELET COUNT, AUTOMATED 36 K/uL (150-450)
== END ==
LOC: LAB 09:59
PROVIDERS: ATTEND Nurse Practitioner Family
DX: K72.00 Acute and subacute hepatic failure without coma (principal); K70.0 Alcoholic fatty liver; J44.9 Chronic obstructive pulmonary disease, unspecified; E11.9 Type 2 diabetes mellitus without complications; R06.00 Dyspnea, unspecified; R53.81 Other malaise; E87.8 Other disorders of electrolyte and fluid balance, not elsewhere classified
CPT/HCPCS: 36415; 82040; 82140; 82150; 82247; 82310; 82374; 82435; 82565; 82947; 83036; 83690; 84075; 84132; 84155; 84295; 84450; 84460; 84520; 85025